=== PATIENT | male | born 1965 | race Caucasian/White ===

== ENCOUNTER 2021-05-14 13:56 | Emergency (ER) | payer OTHER | END 2021-05-14 17:17 | disposition left against medical advice (07) | LOC: ED 13:56 | DX: A41.9 Sepsis, unspecified organism (principal); R65.21 Severe sepsis with septic shock; N17.9 Acute kidney failure, unspecified; J45.909 Unspecified asthma, uncomplicated; Z20.822 Contact with and (suspected) exposure to COVID-19 | CPT/HCPCS: 36415; 51702; 74176; 80053; 81001; 83605; 83690; 85025; 87088; 99284-25; C9803; J0692; J2405; J7030; J7121; U0003 ==

== ENCOUNTER 2021-05-14 21:18 | Emergency (ER) | payer OTHER ==
[~2021-05-14] VITALS: Ht 180.3 cm; Wt 91.8 kg
--- NOTE | ~2021-05-14 | EKG ---
[facility] [address] [facility] [place], [place] [address] Draft EK completed, results pending confirmation PATIENT NAME: MEERAIVAN Electrocardiogram DATE OF : 67 PHYSICIAN: PRELIMINARY REPORT #: [id number] REPORT IS CONFIDENTIAL AND NOT TO BE RELEASED WITHOUT AUTHORIZATION
--- OUTSIDE RECORDS SUMMARY | 2021-05-14 21:26 | XMS ---
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 Neida has no Care Guidelines for this patient. Shabbir [facility] MO[facility] NOTE: Visits indicate total known visits. ED/C VISIT TRACKING (12 MO.) [facility] [place] [place] [facility] COMPLAINT: - ABD PAIN, NAUSEA 05/14/2021 13:58 [facility] [place] [place] TYPE: Emergency COMPLAINT: - VOMITING, ABD/BACK PAIN, NO URINE/BOWEL MOVEMENT INPATIENT VISIT TRACKING (12 MO.) No inpatient visits to display in this time frame [email or web address]
== END 2021-05-15 01:05 | disposition short-term general hospital (02) ==
LOC: ED 21:18
DX: N17.9 Acute kidney failure, unspecified (principal); K85.90 Acute pancreatitis without necrosis or infection, unspecified; J45.909 Unspecified asthma, uncomplicated; Z91.018 Allergy to other foods
CPT/HCPCS: 36415; 80053; 81001; 82553; 83690; 85025; 93005; 93010; 96374; 96375; 99285-25; J1170; J1885; J2405; J7030; J7121

== ENCOUNTER 2022-04-26 00:25 | Emergency (ER) | payer OTHER ==
[~2022-04-26] VITALS: Ht 180.3 cm; Wt 83.9 kg
[~2022-04-26 00:25] MED LIST: AMOX TR-K CLV1 EAC1 PO; HYDROCODON-ACE1 EA10 PO; ONDANSETRON ODT8 MG PO
[2022-04-26] MEDS ORDERED: OMEPRAZOLE20 MG PO (00:41)
[2022-04-26] MEDS ORDERED: AMOX TR-K CLV1 EAC1 PO (04:06)
[2022-04-26] MEDS ORDERED: ONDANSETRON ODT8 MG PO (04:06)
[2022-04-26] MEDS ORDERED: POTASSIUM40 MEQ/15 PO (04:06)
--- NOTE | 2022-04-27 13:03 | EKG ---
[facility] [address] [facility] [place] [address] Signed Normal sinus rhythm Normal ECG When compared with ECG of 15-MAY-2021 00:33, Nonspecific T wave abnormality no longer evident in Inferior leads Nonspecific T wave abnormality no longer evident in Lateral leads Confirmed by HUMZA HUBBARD MD ([id number]) on 04/27/2022 1:03:27 PM Electronically Signed By: HUMZA HUBBARD MD 04/27/22 1303 PATIENT NAME: IVAN ESTES Electrocardiogram DATE OF : 67 PHYSICIAN: HUMZA HUBBARD MD REPORT #: [id number] REPORT IS CONFIDENTIAL AND NOT TO BE RELEASED WITHOUT AUTHORIZATION
== END 2022-04-26 04:30 | disposition home or self-care (01) ==
LOC: ED 00:25
DX: E87.6 Hypokalemia (principal); K86.3 Pseudocyst of pancreas; D72.829 Elevated white blood cell count, unspecified; R11.2 Nausea with vomiting, unspecified; J45.909 Unspecified asthma, uncomplicated; Z20.822 Contact with and (suspected) exposure to COVID-19; Z91.018 Allergy to other foods; Z79.899 Other long term (current) drug therapy
CPT/HCPCS: 36415; 71045; 74177; 80053; 81001; 83605; 83690; 85025; 87502; 93005; 93010; 96368; 96375; 99285-25; A9270; J2405; J2543; J3480; J7030; Q9967; U0003

== ENCOUNTER 2022-05-01 02:23 | Emergency (ER) | payer OTHER ==
[~2022-05-01] VITALS: Ht 180.3 cm; Wt 77.1 kg
[~2022-05-01 02:23] MED LIST changes: +OMEPRAZOLE20 MG PO; +POTASSIUM40 MEQ/15 PO
--- OUTSIDE RECORDS SUMMARY | 2022-05-01 02:31 | XMS ---
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 - Patient with suicidal and/or homicidal ideations eloped. - Patient eloped with IV in place. Details: Patient LWBS. Elopement at [facility] 05/14/2021 13:58 Details: PATIENT LEFT AMA. CRITERIA MET - [facility] - 2 Visits in 30 Days CARE PROVIDERS [facility] Current PHONE: Unknown Neida has no Care Guidelines for this patient. E.Javon VISIT COUNT (12 MO.) 6 [facility] TOTAL 6 NOTE: Visits indicate total known visits. ED/UCC VISIT TRACKING (12 MO.) 05/01/2022 02:24 [facility] [place] TYPE: Emergency COMPLAINT: - N/V 04/26/2022 00:26 [facility] [place] TYPE: Emergency COMPLAINT: - N/V DIAGNOSES: - Nausea with vomiting, unspecified - Elevated white blood cell count, unspecified - Unspecified asthma, uncomplicated - Contact with and (suspected) exposure to COVID-19 - Pseudocyst of pancreas - Allergy to other foods - Other penitentiary (current) drug therapy - Hypokalemia 02/13/2022 10:[address] [facility] [place] TYPE: Emergency COMPLAINT: - ABDOMINAL PAIN DIAGNOSES: - Obstruction of bile duct - Epigastric pain - Sepsis, unspecified organism - Contact with and (suspected) exposure to COVID-19 - Pseudocyst of pancreas 02/12/2022 21:[address] [facility] [place] TYPE: Emergency COMPLAINT: - ABD PAIN DIAGNOSES: - Allergy to other foods - Epigastric pain - Elevated white blood cell count, unspecified - Unspecified asthma, uncomplicated 05/14/2021 21:[address] [facility] [place] TYPE: Emergency COMPLAINT: - ABD PAIN, NAUSEA DIAGNOSES: - Allergy to other foods - Unspecified asthma, uncomplicated - Acute pancreatitis without necrosis or infection, unspecified - Acute kidney failure, unspecified - Unspecified abdominal pain 05/14/2021 13:[address] [facility] [place] TYPE: Emergency COMPLAINT: - VOMITING, ABD/BACK PAIN, NO URINE/BOWEL MOVEMENT DIAGNOSES: - Nausea with vomiting, unspecified - Sepsis, unspecified organism - Acute kidney failure, unspecified - Severe sepsis with septic shock - Unspecified asthma, uncomplicated INPATIENT VISIT TRACKING (12 MO.) 02/14/2022 00:42 [facility] TYPE: General Medicine DIAGNOSES: 88132. Unspecified jaundice 88396. Biliary obstruction 16106. Other disorders of phosphorus metabolism 53114. Adult hypertrophic pyloric stenosis 38232. Unspecified jaundice 55390. Calculus of bile duct without cholangitis or cholecystitis without obstruction 49023. Other specified diseases of pancreas 97377. Acute pancreatitis without necrosis or infection, unspecified 05/15/2021 02:10 [facility] [place] TYPE: Medical Surgical COMPLAINT: - ACUTE PANCREATITIS DIAGNOSES: 0. Unspecified abdominal pain 1. Sepsis, unspecified organism 2. Acute pancreatitis with infected necrosis, unspecified 3. Unspecified bacterial pneumonia 4. Hypo-osmolality and hyponatremia 5. Acute kidney failure, unspecified 6. Hypokalemia 7. Hypomagnesemia 8. Dehydration 9. Hypoxemia 10. Allergy to other foods 11. Family history of alcohol abuse and dependence 12. Family history of diabetes mellitus [email or web address]
[2022-05-01] MEDS ORDERED: POTASSIUM40 MEQ/15 PO (04:11)
[2022-05-01] MEDS ORDERED: PROMETHEGAN25 MG PR (04:11)
== END 2022-05-01 04:25 | disposition home or self-care (01) ==
LOC: ED 02:23
DX: R11.2 Nausea with vomiting, unspecified (principal); Z91.018 Allergy to other foods
CPT/HCPCS: 36415; 80053; 82565; 83690; 85025; 96361; 96374; 99284-25; A9270; J1790; J7121

== ENCOUNTER 2022-05-05 22:35 | Inpatient (IN) | payer OTHER ==
[~2022-05-05] VITALS: Ht 180.3 cm; Wt 68.4 kg
[~2022-05-05 22:35] MED LIST changes: +PROMETHEGAN25 MG PR
--- OUTSIDE RECORDS SUMMARY | 2022-05-05 22:42 | XMS ---
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 - Patient with suicidal and/or homicidal ideations eloped. - Patient eloped with IV in place. Details: Patient LWBS. Elopement at [facility] 05/14/2021 13:58 Details: PATIENT LEFT AMA. CRITERIA MET - [facility] - 2 Visits in 30 Days CARE PROVIDERS [facility] Current PHONE: Unknown Neida has no Care Guidelines for this patient. E.Javon VISIT COUNT (12 MO.) [address] [place] [address] TOTAL 7 NOTE: Visits indicate total known visits. 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 - Hypokalemia - Nausea with vomiting, unspecified - Elevated white blood cell count, unspecified - Unspecified asthma, uncomplicated 02/13/2022 10:16 [facility] [place] TYPE: Emergency COMPLAINT: - ABDOMINAL PAIN DIAGNOSES: - Sepsis, unspecified organism - Contact with and (suspected) exposure to COVID-19 - Pseudocyst of pancreas - Obstruction of bile duct - Epigastric pain 02/12/2022 21:24 [facility] [place] TYPE: Emergency COMPLAINT: - ABD PAIN DIAGNOSES: - Epigastric pain - Elevated white blood cell count, unspecified - Unspecified asthma, uncomplicated - Allergy to other foods 05/14/2021 21:19 [facility] [place] TYPE: Emergency COMPLAINT: - ABD PAIN, NAUSEA DIAGNOSES: - Acute pancreatitis without necrosis or infection, unspecified - Acute kidney failure, unspecified - Unspecified abdominal pain - Allergy to other foods - Unspecified asthma, uncomplicated 05/14/2021 13:[address] [facility] [place] TYPE: Emergency COMPLAINT: - VOMITING, ABD/BACK PAIN, NO URINE/BOWEL MOVEMENT DIAGNOSES: - Acute kidney failure, unspecified - Severe sepsis with septic shock - Unspecified asthma, uncomplicated - Nausea with vomiting, unspecified - Sepsis, unspecified organism INPATIENT VISIT TRACKING (12 MO.) 02/14/2022 00:42 [facility] TYPE: General Medicine DIAGNOSES: 82457. Unspecified jaundice 75940. Biliary obstruction 85976. Calculus of bile duct without cholangitis or cholecystitis without obstruction 98030. Other specified diseases of pancreas 19272. Acute pancreatitis without necrosis or infection, unspecified 22548. Other disorders of phosphorus metabolism 40322. Adult hypertrophic pyloric stenosis 66269. Unspecified jaundice 05/15/2021 02:10 [facility] [place] TYPE: Medical Surgical COMPLAINT: - ACUTE PANCREATITIS DIAGNOSES: 0. Unspecified abdominal pain 1. Sepsis, unspecified organism 2. Acute pancreatitis with infected necrosis, unspecified 3. Unspecified bacterial pneumonia 4. Hypo-osmolality and hyponatremia 5. Acute kidney failure, unspecified 6. Hypokalemia 7. Hypomagnesemia 8. Dehydration 9. Hypoxemia 10. Allergy to other foods 11. Family history of alcohol abuse and dependence 12. Family history of diabetes mellitus [email or web address]
[2022-05-06] MEDS ORDERED: POTASSIUM CHLO10 MEQ PO (11:48)
[2022-05-06] MEDS ORDERED: ONDANSETRON ODT8 MG PO (11:52)
--- NOTE | 2022-05-07 17:41 | EKG ---
[facility] [address] [facility] [place] [address] Signed Normal sinus rhythm Prolonged QT Abnormal ECG When compared with ECG of 26-APR-2022 01:00, T wave inversion now evident in Anterior leads QT has lengthened Confirmed by HUMZA HUBBARD MD ([id number]) on 05/07/2022 5:41:12 PM Electronically Signed By: HUMZA HUBBARD MD 05/07/22 1741 PATIENT NAME: IVAN ESTES DORA Electrocardiogram DATE OF : 67 PHYSICIAN: HUMZA HUBBARD MD REPORT #: [id number] REPORT IS CONFIDENTIAL AND NOT TO BE RELEASED WITHOUT AUTHORIZATION
== END 2022-05-07 15:00 | disposition home or self-care (01) | DRG 683 ==
LOC: ED 22:35 → CCU 22:36 → MS 05-06 11:27 → CCU 05-06 11:27 → MS 05-06 19:39
PROVIDERS: ADMIT Internal Medicine; ATTEND Internal Medicine
DX: N17.9 Acute kidney failure, unspecified (principal); K31.5 Obstruction of duodenum; E87.6 Hypokalemia; Z20.822 Contact with and (suspected) exposure to COVID-19; N18.30 Chronic kidney disease, stage 3 unspecified; M54.50 Low back pain, unspecified; G89.29 Other chronic pain; J45.909 Unspecified asthma, uncomplicated; E83.42 Hypomagnesemia; Z91.018 Allergy to other foods; Z79.899 Other long term (current) drug therapy
CPT/HCPCS: 36415; 71045; 74176; 80048; 80053; 81001; 83690; 83735; 85025; 93005; 93010; A9270; C9113; J2405; J3475; J3480; J7030; J7120; U0003

== ENCOUNTER 2022-05-09 02:23 | Emergency (ER) | payer OTHER ==
[~2022-05-09] VITALS: Ht 180.3 cm; Wt 68.0 kg
[~2022-05-09 02:23] MED LIST changes: +POTASSIUM CHLO10 MEQ PO
--- OUTSIDE RECORDS SUMMARY | 2022-05-09 02:30 | XMS ---
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 - Patient with suicidal and/or homicidal ideations eloped. - Patient eloped with IV in place. Details: Patient LWBS. Elopement at [facility] 05/14/2021 13:58 Details: PATIENT LEFT AMA. CRITERIA MET - [facility] - 2 Visits in 30 Days - 6 ED Visits in 6 Months CARE PROVIDERS [facility] Current PHONE: Unknown Neida has no Care Guidelines for this patient. EBryan VISIT COUNT (12 MO.) [address] [place] [address] TOTAL 8 NOTE: Visits indicate total known visits. ED/UCC VISIT TRACKING (12 MO.) 05/09/2022 02:23 [facility] [place] TYPE: Emergency COMPLAINT: - N/V 05/05/2022 22:35 [facility] [place] TYPE: Emergency [...] Other penitentiary (current) drug therapy - Hypokalemia - Nausea with vomiting, unspecified - Elevated white blood cell count, unspecified - Unspecified asthma, uncomplicated 02/13/2022 10:16 [facility] [place] TYPE: Emergency COMPLAINT: - ABDOMINAL PAIN DIAGNOSES: - Sepsis, unspecified organism - Contact with and (suspected) exposure to COVID-19 - Pseudocyst of pancreas - Obstruction of bile duct - Epigastric pain 02/12/2022 21:24 [facility] [place] TYPE: Emergency COMPLAINT: - ABD PAIN DIAGNOSES: - Epigastric pain - Elevated white blood cell count, unspecified - Unspecified asthma, uncomplicated - Allergy to other foods 05/14/2021 21:19 [facility] [place] TYPE: Emergency COMPLAINT: - ABD PAIN, NAUSEA DIAGNOSES: - Acute pancreatitis without necrosis or infection, unspecified - Acute kidney failure, unspecified - Unspecified abdominal pain - Allergy to other foods - Unspecified asthma, uncomplicated 05/14/2021 13:58 [facility] [place] TYPE: Emergency COMPLAINT: - VOMITING, ABD/BACK PAIN, NO URINE/BOWEL MOVEMENT DIAGNOSES: - Acute kidney failure, unspecified - Severe sepsis with septic shock - Unspecified asthma, uncomplicated - Nausea with vomiting, unspecified - Sepsis, unspecified organism INPATIENT VISIT TRACKING (12 MO.) 05/06/2022 11:27 [facility] [place] TYPE: Medical Surgical COMPLAINT: - ACUTE RENAL FAILURE,HYPOKALEMIA DIAGNOSES: - Acute kidney failure, unspecified - Other chronic pain - Other penitentiary (current) drug therapy - Obstruction of duodenum - Unspecified asthma, uncomplicated - Hypokalemia - Chronic kidney disease, stage 3 unspecified - Other penitentiary (current) drug therapy - Other chronic pain - Obstruction of duodenum - Low back pain, unspecified - Allergy to other foods - Low back pain, unspecified - Chronic kidney disease, stage 3 unspecified - Contact with and (suspected) exposure to COVID-19 - Allergy to other foods - Hypomagnesemia - Hypomagnesemia - Hypokalemia - Unspecified asthma, uncomplicated - Contact with and (suspected) exposure to COVID-19 02/14/2022 00:42 [facility] TYPE: General Medicine DIAGNOSES: 02377. Unspecified jaundice 17297. Biliary obstruction 70890. Calculus of bile duct without cholangitis or cholecystitis without obstruction 84960. Other specified diseases of pancreas 97913. Acute pancreatitis without necrosis or infection, unspecified 63618. Other disorders of phosphorus metabolism 57148. Adult hypertrophic pyloric stenosis 65500. Unspecified jaundice [facility]15[facility]2021 02:[facility] COMPLAINT: - ACUTE PANCREATITIS DIAGNOSES: 0. Unspecified abdominal pain 1. Sepsis, unspecified organism 2. Acute pancreatitis with infected necrosis, unspecified 3. Unspecified bacterial pneumonia 4. Hypo-osmolality and hyponatremia 5. Acute kidney failure, unspecified 6. Hypokalemia 7. Hypomagnesemia 8. Dehydration 9. Hypoxemia 10. Allergy to other foods 11. Family history of alcohol abuse and dependence 12. Family history of diabetes mellitus [email or web address]
== END 2022-05-09 11:06 | disposition home or self-care (01) ==
LOC: ED 02:23
DX: R11.10 Vomiting, unspecified (principal); J45.909 Unspecified asthma, uncomplicated; Z91.018 Allergy to other foods; Z79.899 Other long term (current) drug therapy
CPT/HCPCS: 36415; 80053; 83690; 83735; 85025; 96361; 96365; 96368; 96375; 99284-25; J2550; J2765; J3475; J3480; J7030

== ENCOUNTER 2022-05-17 09:44 | Inpatient (IN) | payer OTHER ==
[~2022-05-17] VITALS: Ht 180.3 cm; Wt 70.1 kg
--- OUTSIDE RECORDS SUMMARY | 2022-05-17 09:52 | XMS ---
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 - Patient with suicidal and/or homicidal ideations eloped. - Patient eloped with IV in place. Details: Patient LWBS. Elopement at [facility] 05/14/2021 13:58 Details: PATIENT LEFT AMA. CRITERIA MET - 6 ED Visits in 6 Months - [facility] - 2 Visits in 30 Days CARE PROVIDERS [facility] Current PHONE: Unknown Neida has no Care Guidelines for this patient. EBryan VISIT COUNT (12 MO.) [address] [place] [address] TOTAL 7 NOTE: Visits indicate total known visits. 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 - Allergy to other foods - Unspecified abdominal pain - Vomiting, unspecified - Unspecified asthma, uncomplicated 05/05/2022 22:35 [facility] [place] TYPE: Emergency COMPLAINT: - VOMITING 05/01/2022 02:24 [facility] [place] TYPE: Emergency COMPLAINT: - N/V DIAGNOSES: - Allergy to other foods - Nausea with vomiting, unspecified 04/26/2022 00:26 [facility] [place] TYPE: Emergency COMPLAINT: - N/V DIAGNOSES: - Contact with and (suspected) exposure to COVID-19 - Pseudocyst of pancreas - Allergy to other foods - Other senior care (current) drug therapy - Hypokalemia - Nausea [...] asthma, uncomplicated - Allergy to other foods INPATIENT VISIT TRACKING (12 MO.) 05/06/2022 11:27 [facility] [place] TYPE: Medical Surgical COMPLAINT: - ACUTE RENAL FAILURE,HYPOKALEMIA DIAGNOSES: - Contact with and (suspected) exposure to COVID-19 - Acute kidney failure, unspecified - Other chronic pain - Other senior care (current) drug therapy - Unspecified asthma, uncomplicated - Obstruction of duodenum - Hypokalemia - Chronic kidney disease, stage 3 unspecified - Other senior care (current) drug therapy - Other chronic pain - Obstruction of duodenum - Low back pain, unspecified - Allergy to other foods - Chronic kidney disease, stage 3 unspecified - Low back pain, unspecified - Contact with and (suspected) exposure to COVID-19 - Allergy to other foods - Hypomagnesemia - Hypomagnesemia - Hypokalemia - Unspecified asthma, uncomplicated 02/14/2022 00:42 [facility] TYPE: General Medicine DIAGNOSES: 16009. Unspecified jaundice 48245. Biliary obstruction 79304. Calculus of bile duct without cholangitis or cholecystitis without obstruction 43046. Other specified diseases of pancreas 29197. Acute pancreatitis without necrosis or infection, unspecified 85129. Other disorders of phosphorus metabolism 41776. Adult hypertrophic pyloric stenosis 63572. Unspecified jaundice [email or web address]
[2022-05-17] MEDS ORDERED: CIPROFLOXACIN500 MG PO (09:58)
--- NOTE | 2022-05-17 12:32 | NUR ---
MED REC COMPLETE
[2022-05-17] MEDS ORDERED: POTASSIUM CHLO10 MEQ PO (12:56)
--- NOTE | 2022-05-17 13:52 | NUR ---
PATIENT ADMITTED TO MED SURG. PATIENT DOES HAVE A RIGHT T-TUBE WITH RIGHT LOWER BACK INSERTION SITE, TUBE HAS PURULENT DRAINAGE. PATIENT SELF CARES FOR DRAIN. IV KCL IS INFUSING CONCURRENLY WITH IVF TO RIGHT ARM. PATIENT RATES PAIN LOW 1/10 TO LOWER BACK. PATIENT IS HAVING CLEAR LIQUIDS, CHICKEN BROTH AND ICE WATER AT THIS TIME AND IS TOLERATING WELL.
--- NOTE | 2022-05-17 14:24 | NUR ---
medications reconciled with patient.
--- NOTE | 2022-05-17 14:55 | NUR ---
INTO SEE PATIENT. INFORMATION REVIEWED FROM PATIENT LAST VISIT. PATIENT IS STILL LIVING WITH HIS SO AND WORKING FROM HOME. NO DME REQUIRED AT THIS TIME. PATIENT STATES HE HAS BEEN SEEN AT [facility] OVER THE PAST YEAR FOR ONGOING ISSUES RELATED TO G[place]STONE PANCREATITIS AND THE FORMATION OF A PSEUDOCYST. HE STATES THAT HE WAS HOPING THE HAVE THE DRAIN REMOVED FROM THE CYST, BUT HAD FOUND THAT IT HAD NOT DECREASED MUCH IN SIZE. PATIENT STATES HE DOES NOT HAVE A SCHEDULED DATE FOR A CHOLECYSTECTOMY AT THIS TIME AND HE "JUST WANTS TO GET BETTER." NO FURTHER NEEDS AT THIS TIME. WILL CONTINUE TO VISIT PATIENT.
--- NOTE | 2022-05-17 15:04 | NUR ---
PATIENT ADVANCED TO FULL LIQUID DIET.
--- NOTE | 2022-05-17 15:50 | NUR ---
PATIENT GIVEN 4MG IV ZOFRAN FOR NAUSEA. PATIENT UP TO BATHROOM TO VOID. PATIENT TOLERATED ACTIVITY WITH SBA, WAS STEADY ON HIS FEET.
--- NOTE | 2022-05-17 17:03 | NUR ---
PATIENT HAS REDUCED NAUSEA AFTER ZOFRAN, IS SITTING UP IN BED TO HAVE FULL LIQUID DINNER.
--- NOTE | 2022-05-17 19:37 | NUR ---
REPORT RECEIVED FROM DAY SHIFT RN. PT LYING IN BED ALERT AND ORIENTED. NEW BAG IVF HUNG. FRESH WATER PROVIDED. URINAL EMPTIED. PT REPORTS NAUSEA THAT IMPROVED AFTER "BELCHING." DOES NOT WANT PRN FOR N/V AT THIS TIME. WHITE BOARD UPDATED. CALL LIGHT IN REACH.
--- NOTE | 2022-05-17 21:53 | NUR ---
EVENING ASSESSMENT COMPLETE. SCHEDULED MEDS ADMIN PER EMAR. PT DENIES PAIN OR NAUSEA AT THIS TIME. PT HAS DIFFICULTY SWALLOWING MEDS WITHOUT CRUSHING. PT UNABLE TO SWALLOW PO MAG ADMIN BY DAY SHIFT. DR. HINSON NOTIFIED. NEW ORDERS RECEIVED. CONCEPCION PROVIDED. SCD'S PLACED. PT DENIES QUESTIONS OR CONCERNS. CALL LIGHT IN REACH.
--- NOTE | 2022-05-17 22:03 | NUR ---
CALL LIGHT ANSWERED. PT REPORTS "SLIGHT STINGING" WITH MAG INFUSION. IV IN RIGHT FOREARM FLUSHED WITH BRISK BLOOD RETURN NOTED. MAG INFUSING CONCURRENTLY WITH IVF. WARM BLANKET PLACED OVER SITE. PT REPORTS PAIN IMPROVED, DOES NOT WANT THIS RN TO SWITCH IV SITES. CHICKEN BROTH PROVIDED. NO FURTHER NEEDS.
--- NOTE | 2022-05-17 22:44 | NUR ---
PT REPORTS INTERMITTENT NAUSEA. PRN FOR N/V ADMIN PER EMAR. APPLE JUICE AND FRESH WATER PROVIDED. NO FURTHER NEEDS.
--- NOTE | 2022-05-18 00:52 | NUR ---
IV PUMP ALARMING. NEW BAG IVF INFUSING WNL. VS AND I&O COMPLETE. PT DENIES PAIN OR NAUSEA. SCD'S OFF FOR SLEEP PER PT REQUEST. APPLE JUICE PROVIDED. NO FURTHER NEEDS.
--- NOTE | 2022-05-18 03:21 | NUR ---
PT AWAKE IN BED. ASSESSMENT COMPLETE. DENIES NAUSEA. URINAL EMPTIED. APPLE JUICE PROVIDED. NO FURTHER NEEDS.
--- NOTE | 2022-05-18 05:41 | NUR ---
IV PUMP ALARMING. NEW BAG IVF INFUSING WNL. PT DENIES PAIN OR NAUSEA AT THIS TIME. FRESH WATER AND APPLE JUICE PROVIDED. NO FURTHER NEEDS. CALL LIGHT IN REACH.
--- NOTE | 2022-05-18 07:19 | NUR ---
PT UP IN BED. PT REQ APPLE JUICE. PT PROVIDED APPLE JUICE. PT CONCERNED OF CALCIUM AMOUNT THAT WILL BE ON FOOD TRAY THIS MORNING. I LET PT KNOW THAT HIS RN SHOULD BE AWARE BUT I WILL DOUBLE CHECK AND MAKE SURE RN IS NOTIFIED. NO FURTHER NEEDS. CALL LIGHT WITHIN REACH.
--- NOTE | 2022-05-18 07:32 | NUR ---
REPORT RECEIVED FROM ISIDORO ROE. PT AWAKE AND STATES HE FEELS BETTER, MORE HYDRATED "PEEING A TON". WILL MONITOR FOR A BIT LONGER THEN TURN DOWN FLUIDS IF HE TOLERATES BREAKFAST.
--- NOTE | 2022-05-18 09:22 | NUR ---
PT RESTING IN BED. VITALS AND IS AND OS COMPLETE. PT DECLINED BATHROOM NEEDS. NO FURTHER NEEDS. CALL LIGHT WITHIN REACH
--- NOTE | 2022-05-18 10:54 | NUR ---
PATIENT ADVANCED TO REGULAR DIET, MENU PROVIDED AND PATIENT IS ODERING LUNCH.
--- NOTE | 2022-05-18 11:09 | NUR ---
pt call light answered, pt req to have urinal emptied. pt provided wipe to clean hands. no needs at this time. call light within reach
--- NOTE | 2022-05-18 11:45 | NUR ---
PT SITTING UP RIGHT IN BED. PLACED GAUZE AROUND DRAIN PER PT REQUEST. HUNG NEW BAG OF IVF PER ORDER. PT TOLERATED WELL. DENIES PAIN ATT.
--- NOTE | 2022-05-18 12:01 | NUR ---
PATIENT GIVEN 4MG IV ZOFRAN FOR MILD NAUSEA AFTER LUNCH.
--- NOTE | 2022-05-18 13:12 | NUR ---
PATIENT SITTING ON SIDE OF BED NO CHANGE IN DISCHARGE PLAN. THE PLAN IS TO DC HOME AND IN THE FUTURE FOLLOW UP WITH [facility].
--- NOTE | 2022-05-18 15:27 | NUR ---
ADMINISTERED CIPRO PER ORDER. PT TOLERATED WELL. WOKE PT FOR PILLS. PT STATES THAT HE IS GETTING MORE OF THE "STUFF" OUT OF THE DRAIN THAN HE HAS IN THE LAST WEEK SINCE PLACEMENT. STATES IT IS PROBABLY BECAUSE HE IS MORE HYDRATED.
--- NOTE | 2022-05-18 16:42 | NUR ---
PT VOMITED 2400ML GREEN EMESIS. PT NOW FEELS SLIGHTLY BETTER. IV WITH POTASSIUM DONE, RESTARTED NS. PT BACK TO BED TO REST. CALL LIGHT IN REACH.
--- NOTE | 2022-05-18 19:45 | NUR ---
REPORT RECEIVED FROM DAY SHIFT RN. PT LYING IN BED RESTING ON LEFT SIDE. EYES CLOSED. RESPIRATIONS EVEN. CALL LIGHT IN REACH.
--- NOTE | 2022-05-18 20:44 | NUR ---
EVENING ASSESSMENT COMPLETE. IVF INFUSING WNL. PT DENIES PAIN OR NAUSEA AT THIS TIME. BOWEL TONES ACTIVE. RIGHT LOWER BACK DRAIN INTACT WITH SMALL AMOUNT DARK PURULENT DRAINAGE. DRESSING CDI. APPLE JUICE AND FRESH WATER PROVIDED. PT DENIES QUESTIONS OR CONCERNS. CALL LIGHT IN REACH.
--- NOTE | 2022-05-18 21:41 | EKG ---
[facility] [address] [facility] [place] [address] Signed Sinus tachycardia Left posterior fascicular block Abnormal ECG When compared with ECG of 05-MAY-2022 23:55, Left posterior fascicular block is now present T wave inversion no longer evident in Anterior leads Nonspecific T wave abnormality now evident in Lateral leads Confirmed by Charley Hinson MD () on 05/18/2022 9:41:13 PM Electronically Signed By: CHARLEY HINSON MD 05/18/222140 PATIENT NAME: IVAN ESTES Electrocardiogram DATE OF : 67 PHYSICIAN: CHARLEY HINSON MD REPORT #: [id number] REPORT IS CONFIDENTIAL AND NOT TO BE RELEASED WITHOUT AUTHORIZATION
--- NOTE | 2022-05-18 23:39 | NUR ---
CALL LIGHT ANSWERED. APPLE JUICE AND GRANOLA BAR PROVIDED PER PT REQUEST. URINAL EMPTIED. NO FURTHER NEEDS.
--- NOTE | 2022-05-19 01:54 | NUR ---
PT RESTING IN BED WITH EYES CLOSED LYING ON LEFT SIDE. RESPIRATIONS EVEN. CALL LIGHT IN REACH.
--- NOTE | 2022-05-19 02:49 | NUR ---
CALL LIGHT ANSWERED. JUICE, WATER, AND GRANOLA BAR PROVIDED PER REQUEST. PT DENIES PAIN OR NAUSEA. NEW BAG IVF INFUSING PER ORDER. WARM BLANKET PROVIDED. NO FURTHER NEEDS.
--- NOTE | 2022-05-19 02:50 | NUR ---
call light answered, pt requesting apple juice-granola bar-fresh ice water. request provided, no additional needs. call light in reach. primary rn in room to hang new bag iv fluids.
--- NOTE | 2022-05-19 04:03 | NUR ---
PT RESTING IN BED ON RIGHT SIDE WITH EYES CLOSED. RESPIRATIONS EVEN. CALL LIGHT IN REACH.
--- NOTE | 2022-05-19 05:43 | NUR ---
PT RESTING IN BED. AWAKENS EASILY. VS AND I&O COMPLETE. PT DENIES PAIN OR NAUSEA. APPLE JUICE PROVIDED. NO FURTHER NEEDS. CALL LIGHT IN REACH.
--- NOTE | 2022-05-19 07:04 | NUR ---
Report from Facundo Montiel RN. Patient sitting up in bed, watching TV. Denies needs at this time. Call light in reach.
--- NOTE | 2022-05-19 09:25 | NUR ---
ASSESSMENT COMPLETED. IV TO LEFT HAND DC'D DUE TO INFLAMMATION. DENIES PAIN AT THIS TIME. CALL LIGHT IN REACH. PATIENT STATES HE IS FEELING "FOGGY" THIS AM. STATES HE ALSO FEELS LIKE HE NEEDS TO HAVE A BM, BUT WILL WAIT A BIT LONGER BEFORE HE ATTEMPTS TO HAVE BM.
--- NOTE | 2022-05-19 11:53 | NUR ---
Emesis of 450ml. Informed too early for Zofran at this time. Informed phenergan is available. States he would rather have medication after lunch since it makes him sleep. Dr. Oliver notified of emesis, plan to keep patient through tonight and continue IV fluids.
--- NOTE | 2022-05-19 12:27 | NUR ---
Emesis of 400mL at this time. States he would like to eat at this time. Denies want of PRN medication at this time.
--- NOTE | 2022-05-19 14:01 | NUR ---
Emesis of 800 mL after eating lunch. Zofran administered. Dr. Oliver notified, in to see patient at this time. Continue to plan to keep overnight tonight and plan for DC tomorrow, if patient able to keep food down. Continues on IV fluids. Patient tearful at this time. Voices concern about dying due to inability to eat without vomiting. Also verbalizes wish to get well and go home soon. Feels he does need more time to ensure he does not get dehydrated again.
--- NOTE | 2022-05-19 15:40 | NUR ---
PATIENT WITH 500ML OF EMESIS. PATIENT GIVEN 12.5MG OF IV PHENERGAN.
--- NOTE | 2022-05-19 17:07 | NUR ---
REGULAR DIET THIS AM AND FOR LUNCH. INCREASED EMESIS, 1800 ML OUT TOTAL TODAY. DRAIN REMAINS IN RIGHT LOWER BACK WITH PURULENT DRAINAGE OUT. IV POTASSIUM IN 1 LITER OF FLUID INFUSED. PATIENT STATES HE IS JUST GOING TO HAVE LIQUID DIET FOR SUPPER TO ATTEMPT TO NOT VOMIT FURTHER. IV FLUIDS INCREASED TO 200ML/HOUR, NS.
--- NOTE | 2022-05-19 17:28 | NUR ---
ATE 50% OF MEAL WITH 1000ML EMESIS IMMEDIATELY AFTER. STATES HE IS JUST GOING TO LAY DOWN AND TRY TO REST AT THIS TIME.
--- NOTE | 2022-05-19 17:38 | NUR ---
PATIENT IS RESTING IN BED, DENIES NEEDS AT THIS TIME.
--- NOTE | 2022-05-19 19:20 | NUR ---
RECEIVED REPORT FROM OFFGOING SHIFT, HOURLY ROUNDING INITIATED
--- NOTE | 2022-05-19 21:59 | NUR ---
IN PT ROOM FOR ROUNDING. PT RESTING ON SIDE, EYES CLOSED, BREATHING EVEN AND UNLABORED, NO INDICATION OF PAIN OR DISCOMFORT. PT CALL LIGHT IN REACH.
--- NOTE | 2022-05-19 22:59 | NUR ---
in pt room for rounding. pt resting on side, eyes closed, breathing even and unlabored with no indication of pain or discomfort. call light in reach.
--- NOTE | 2022-05-20 00:10 | NUR ---
pt HEARD FROM RN STATION DRY HEAVING, IN ROOM TO ASSIST. pt HAD 550MLS GREEN LIQUID EMESIS-RECENTLY MEEDICATED BY PRIMARY RN LISA WITH PRN [place]A MEDICATION. NEW EMESIS BAG PROVIDED ALONG WITH WARM RAG TO WASH FACE. NO DISTRESS NOTED, pt DENIES ADDITIONAL NEEDS OR CONCERNS. CALL LIGHT IN REACH AND PRIMARY RN LISA MADE AWARE.
--- NOTE | 2022-05-20 00:13 | NUR ---
IN PT ROOM FOR ROUNDING. PT FOUND TO BE SITTING ON EDGE OF BED, EMESIS BAG IN HAND ACTIVELY VOMITING. TOTAL VOLUME 600 mL. PT GIVEN NAUSEA MEDICINE PER REQUEST. WILL CONTINUE TO MONITOR, NO FURTHER COMPLAINT OF PAIN OR DISCOMFORT.
--- NOTE | 2022-05-20 00:57 | NUR ---
IN PT ROM FOR ROUNDING. PT RESTING ON SIDE, BREATHING EVEN AND UNLABORED, EVIDENCE OF NAUSEA AND VOMIT NOT PRESENT. PT CALL LIGHT IN REACH, NO COMPLAINT OF PAIN OR DISCOMFORT
--- NOTE | 2022-05-20 01:27 | NUR ---
PATIENT HAD 1100ML OF EMESIS. PATIENT GIVEN PRN NAUSEA MEDICATION. PATIENTS URINAL EMPTIED. PATIENT PROVIDED COOL RAG TO WASH FACE. PATIENT IS NOW RESTING IN BED. IV INFUSING PER ORDER. PATIENT DENIES ANY FURTHER NEEDS. CALL LIGHT IN REACH.
--- NOTE | 2022-05-20 03:26 | NUR ---
IN PT ROOM FOR ROUDNIGN. PT RESTING ON SIDE, BREATHING EVEN AND UNLABORE,D NO INDICATION OF DISCOMFORT, NAUSEA. PT CALL LIGHT IN REACH
--- NOTE | 2022-05-20 04:07 | NUR ---
IN PT ROOM TO EMPTY URINAL. PT AWAKE AND TALKATIVE, ABLE TO MAKE NEEDS KNOWN. PT HAS NO COMPLAINT OF PAIN OR NAUSEA AT THIS TIME. CALL LIGHT IN REACH.
--- NOTE | 2022-05-20 05:24 | NUR ---
pt resting in bed. vitals and is and os complete. pt declined am care. pt provided grape juice and ice water.when pt asked if he would like to get up to chair, pt stated "i dont know what i want, i just want to go home". pt informed he can just let us know if he would like to get up no needs at this time. call light within reach
--- NOTE | 2022-05-20 07:49 | NUR ---
ANSWERED CALL LIGHT WITH METAL DRAWER. ASSISTED PATIENT TO CHAIR AND SET PT UP FOR BREAKFAST. CHANGED LINENS. CALL LIGHT WITHIN REACH. NO FURTHER NEEDS AT THIS TIME.
--- NOTE | 2022-05-20 07:52 | NUR ---
RECIEVED SHIFT REPORT. PT AWAKE IN BED, DENIES ANY NEEDS AT THIS TIME. CALL LIGHT WITHIN REACH.
--- NOTE | 2022-05-20 09:22 | NUR ---
MORNING ASSESSMENT COMPLETE. PT DENIES PAIN AT THIS TIME. TOLERATED BREAKFAST, DENIES NAUSEA. ABD SOUNDS HYPOACTIVE IN ALL QUADRANTS. CALL LIGHT WITHIN REACH. DENIES FURTHER NEEDS.
--- NOTE | 2022-05-20 10:07 | NUR ---
PATIENT RESTING IN BED. ADMINISTERED AM MEDICATION AND IV POTASSIUM MEDICATION ON SECONDARY LINE. PATIENT REPORTS NO PAIN OR NAUSEA AT THIS TIME AND TOLERATED BREAKFAST WELL. VITALS, I/O, & ASSESSMENT COMPLETE. CALL LIGHT WITHIN REACH. NO FURTHER NEEDS AT THIS TIME.
--- NOTE | 2022-05-20 11:19 | NUR ---
PT SITTING ON SIDE OF BED, MINIMAL EMESIS EPISODES, ZOFRAN OFFERED, PT REFUSED. WILL CONTIUNE TO MONITOR. CALL LIGHT WITHIN REACH
--- NOTE | 2022-05-20 11:23 | NUR ---
PER AM MEETING AND MD DIET ADJUSTED AND FLUID RESTRICTION STARTED. WILL CONTINUE TO MONITOR PATIENT, NO CHANGES IN DISCHARGE PLAN AT THIS TIME.
--- NOTE | 2022-05-20 12:59 | NUR ---
pt had an episode of emesis, 350 ml. pt agreed to prn nausea medication. adminstered (per emar). denies further needs. call light within reach
--- NOTE | 2022-05-20 14:59 | NUR ---
PT CONTIUNES TO HAVE EPISODES OF EMESIS. PT DENIES NAUSEA A THIS TIME. REFUSED PRN NAUSEA MEDICATION. DENIES FURTHER NEEDS AT THIS TIME.
--- NOTE | 2022-05-20 17:47 | NUR ---
PATIENT AT EDGE OF BED EATING DINNER. PT. ON FULL LIQUID DIET. REPORTS NO NAUSEA OR PAIN AT THIS TIME. VITALS COMPLETE. CALL LIGHT WITHIN REACH, NO FURTHER NEEDS AT THIS TIME.
--- NOTE | 2022-05-20 19:28 | NUR ---
RECEIVED BEDSIDE REPORT FROM OFFGOING SHIFT, HOURLY ROUNDING INITIATED.
--- NOTE | 2022-05-20 20:59 | NUR ---
IN PT ROOM FOR ASSESSMENT. PT RESTING ON SIDE, EXPRESS DESIRE TO NOT MOVE IF UNNECESSARY. PT HAS NO COMPLAINT OF PAIN OR DISCOMFORT AT THIS TIME, CALL LIGHT IN REACH
--- NOTE | 2022-05-20 22:05 | NUR ---
IN PT ROOM FOR ROUNDIGN. PT RESTING ON SIDE, EYES CLOSED, BREATHING EVEN AND UNLABORED, NO INDICATION OF PAIN OR DSICOMFORT, CALL LIGHT IN REACH.
--- NOTE | 2022-05-20 23:24 | NUR ---
IN PT ROOM FOR ROUNDING. PT RESTING ON SIDE, EYES CLOSED, BREATHING EVEN AND UNLABORED WITH NO INDICATION OF PAIN OR DISCOMFORT. PT CALL LIGHT IN REACH.
--- NOTE | 2022-05-21 00:46 | NUR ---
IN PT ROOM FOR ROUNDING. PT NAUSEA SEEMS TO HAVE RESOLVED AT THIS TIME, NO FURTHER COMPLAINT OF DISCOMFORT. PT CALL LIGHT IN REACH
--- NOTE | 2022-05-21 03:00 | NUR ---
IN PT ROOM FOR ROUNDING. PT RESTING ON SIDE, EYES CLOSED, NO COMPLAINT OF NAUSEA OR PAIN, BREATHING EVEN AND UNLABORED, CALL LIGHT IN REACH.
--- NOTE | 2022-05-21 07:05 | NUR ---
bedside report from michelle rn, pt awake in bed with call light in reach, iv fusing at 125 - pt denies needs at this time- white board updated.
--- NOTE | 2022-05-21 08:13 | NUR ---
PATIENT SITTING UP IN BED WITH TV ON. PT REPORTS NO NAUSEA OR PAIN AT THIS TIME AND REFUSED SHOWER FOR THE DAY, STATES "REALLY WANTS TO GET HOME". ASSESSMENT COMPLETE. CALL LIGHT WITHIN REACH, NO FURHTER NEEDS AT THIS TIME.
--- NOTE | 2022-05-21 09:30 | NUR ---
in room with pt for assessment, he reports no nausea or vomiting at this time, he states that he often get sick 2-3 hrs after he has intake? hi right side posterior flank tube is secure and draining a small amt of dark milky fluid to the gravity drain. this rn visitied with about pt status. 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
--- NOTE | 2022-05-21 09:45 | NUR ---
PT. IS FINISHED WITH BREAKFAST AND RESTING IN BED WITH THE TV ON. VITALS COMPLETE. PT REPORTS NO NAUSEA OR PAIN AT THIS TIME. APPEARS TO BE OBIDING BY FLUID RESTRICTION ORDER. PT STATES "FEELING EMOTIONALLY DONE AND DRAINED FROM BEING IN THE HOSPITAL AND WANTS TO GO HOME". OFFERED EMOTIONAL ENCOURAGEMENT AND PATIENT RESPONDED WELL. CALL LIGHT WITHIN REACH, NO FURTHER NEEDS AT THIS TIME.
--- NOTE | 2022-05-21 12:10 | NUR ---
pt requested nausea medication, adminstered (per emar). pt states he feels nauseous at this time, states his "urine is getting darker and hes not getting enough fluids". pt eating lunch at this time. call light within reach.
--- NOTE | 2022-05-21 12:18 | NUR ---
PATIENT'S DISCHAGE PLAN REMAINS UNCHANGED. PATIENT WILL BE DC'd WHEN MEDICALLY STABLE. PATIENT CONTINUES TO HAVE NAUSEA AND VOMITING EPISODES. PATIENT WILL RETURN TO [facility] IN THE NEAR FUTURE.
--- NOTE | 2022-05-21 16:05 | NUR ---
PT SITTING IN CHAIR, AWAKE. DENIES PAIN AT THIS TIME. STATES NAUSEA CURRENTLY SUBSIDED, BUT "COMES AND GOES", SCHEDULED MEDICATION ADMINSITERED (PER EMAR). DENIES FURTHER NEEDS AT THIS TIME. CALL LIGHT WITHIN REACH.
--- NOTE | 2022-05-21 16:29 | NUR ---
THIS RN HAS SPENT MULTIPLE HOURS ATTEMPTING TO GET THROUGH TO PATIENT INSURANCE PROVIDER TO ASSIST WITH INPATIENT REHAB AUTH AND HAS BEEN UNSUCCESSFUL. ATTEMPTS HAVE ALSO BEEN MADE TO CONTACT [employer] WITH NO RESULT. ADMITTING AND UR STAFF INVOLVED AND WILL ASSIST ON TUESDAY. ITZEL CHAUDHRY UPDATED.
--- NOTE | 2022-05-21 16:50 | NUR ---
IN ROOM TO EXPLAIN TO PT MD WAS NOTIFIED AND ATIVAN WAS ORDERED. PT STATES "I DONT FEEL I NEED ANYTHING RIGHT NOW. I AM ANXIOUS, BUT NOT THAT ANXIOUS. I FEEL I NEED TO POOP". ENCOURAGED TO NOTIFY STAFF IF WANTING TO RECONSIDER ATIVAN.
--- NOTE | 2022-05-21 16:54 | NUR ---
THIS RN NOTIFIED PT IS HAVING ANXIETY. THIS RN IN ROOM TO ASSESS. PT HAS NEVER EXPERIENCED THIS AND IS WORRIED THE REGLAN ADMINISTERED IS THE CAUSE. THIS RN NOTIFIED MD AND TELEPHONE ORDER WAS GIVEN TO ORDER 1MG ATIVAN, IV ONCE.
--- NOTE | 2022-05-21 18:45 | NUR ---
PT RESTING IN BED, STATES ANXIETY HAS GONE DOWN. NAUSEA IS STILL PRESENT BUT CONTIUNES TO "COME AND GO". DENIES FURTHER NEEDS AT THIS TIME.
--- NOTE | 2022-05-21 19:15 | NUR ---
RECEIVED BEDSIDE REPORT FROM OFFGOING SHIFT
--- NOTE | 2022-05-21 21:35 | NUR ---
IN TO ANSWER CALL LIGHT. PT REQUESTING TO USE RESTROOM. IV PUMP UNPLUGGED FROM WALL. PT AMBULATES FROM BED TO RESTROOM WITH STEADY GAIT. PT NOTED TO HAVE EMESIS. SMALL LIQUID BM NOTED TO YENIFER PAD. NEW YENIFER PAD PLACED TO BED. NEW ATTENDS PROVIDED FOR PT. THIS RN INFORMED PRIMARY RN OF PTs EMESIS.
--- NOTE | 2022-05-21 21:50 | NUR ---
IN PT ROOM TO ASSIST WITH TOILETING. PT FOUND TO BE ALSO VOMITING, PT CLEANED UP AND HELPED TO BED, 300 mL EMESIS, NO COMPLAINT OF PAIN, PT DECLINES PRN NAUSEA MEDICATION. CALL LIGHT IN REACH.
--- NOTE | 2022-05-21 22:26 | NUR ---
IN PT ROOM TO ASSIST WITH PT VOMITING. PT EMESIS 600 mL. NO FURTHER COMPLAINT, CALL LIGHT IN REACH
--- NOTE | 2022-05-21 22:58 | NUR ---
IN PT ROOM FOR ROUNDING. PT RESTING ON BACK, WATCHING TELEVISION. STATES HE WILL CALL IF ANYTHING IS NEEDED, CALL LIGHT IN REACH
--- NOTE | 2022-05-22 00:12 | NUR ---
in pt room for rounding. pt watching television, talking about the first time he saw "back [place] the [place]". Pt has no complaint of pain or discomfort, call light in reach
--- NOTE | 2022-05-22 01:52 | NUR ---
IN PT ROOM FOR ROUNDING. PT RESTING ON BACK, EYES CLOSED, BREATHING EVEN AND UNLABORED, CALL LIGHT IN REACH, NO COMPLAINT OF PAIN OR DISCOMFORT.
--- NOTE | 2022-05-22 03:46 | NUR ---
IN PT ROOM FOR ROUNDING. PT RESTING ON BACK, EYES CLOSED, BREATHING EVEN AND UNLABORED. PT STIRRED WHEN ENTERING THE ROOM TO CHECK ON IV BAG. PT HAS NO COMPLAINT OF PAIN OR DISCOMFORT AT THIS TIME, CALL LIGHT IN REACH
--- NOTE | 2022-05-22 05:46 | NUR ---
in pt room for vs, rounding. pt resting on back, no complaint of nausea or vomiting at this time. pt has no complaint of pain or discomfort, labs drawn, call light in reach
--- NOTE | 2022-05-22 07:23 | NUR ---
RECEIEVED SHIFT REPORT. PT RESTING IN BED, AWAKE. PT REQUESTED TO USE RESTROOM. DENIES FURTHER NEEDS. CALL LIGHT WITHIN REACH
--- NOTE | 2022-05-22 08:20 | NUR ---
MORNING ASSESSMENT COMPLETE. PT DENIES PAIN AND NAUSEA AT THIS TIME. SCHEDULED MAG ADMINISTERING AT THIS TIME. HAD ONE EPISIODE OF OF LIQUID STOOL PRIOR TO THIS ASSESSMENT. ABD SOUNDS ACTIVE, NON TENDER. CALL LIGHT WITHIN REACH.
--- NOTE | 2022-05-22 09:44 | NUR ---
PT RESTING IN BED, AWAKE. DENIES FURTHER NEEDS AT THIS TIME. CALL LIGHT WITHIN REACH.
--- NOTE | 2022-05-22 10:28 | NUR ---
IN ROOM TO ADMINSTER SCHEDULED KCL (PER EMAR). PT REPORTS IN NAUSEOUS, PRN [place] MEDICATION OFFERED, PT STATES "IT WOULDNT HELP". PT BEGINS TO THROW UP. REPORTS ACID BURNING FEELING PRIOR TO THROWING UP. 100ML, LIGHT GREEN IN COLOR. DENIES FURTHER NEEDS AT THIS TIME, CALL LIGHT WITHIN REACH
== END 2022-05-22 13:10 | disposition home or self-care (01) | DRG 683 ==
LOC: ED 09:44 → MS 09:45
PROVIDERS: ADMIT Family Medicine; ATTEND Internal Medicine
DX: N17.9 Acute kidney failure, unspecified (principal); K86.3 Pseudocyst of pancreas; E87.6 Hypokalemia; Z20.822 Contact with and (suspected) exposure to COVID-19; E83.42 Hypomagnesemia; R11.15 Cyclical vomiting syndrome unrelated to migraine; E86.0 Dehydration; F41.1 Generalized anxiety disorder; M54.50 Low back pain, unspecified; G89.29 Other chronic pain; J45.909 Unspecified asthma, uncomplicated; Z91.018 Allergy to other foods; Z79.2 Long term (current) use of antibiotics; Z79.899 Other long term (current) drug therapy
CPT/HCPCS: 36415; 71045; 74176; 80048; 80053; 83690; 83735; 84100; 84484; 85025; 93005; 93010; 96361; 96374; 96375; 99285-25; J2405; J2550; J2765; J3475; J3480; J7030; J7060; U0003

== ENCOUNTER 2024-09-18 06:55 | Emergency (ER) | payer OTHER ==
[~2024-09-18] VITALS: Ht 180.3 cm; Wt 91.4 kg
[~2024-09-18 06:55] MED LIST changes: +CIPROFLOXACIN500 MG PO
[2024-09-18] MEDS ORDERED: SODIUM CHLORIDE 0.9% 1,000 ML IV ONE (07:15)
[2024-09-18] MEDS ORDERED: ondansetron HCL 4 MG/2 ML VIAL IV ONE (07:15)
[2024-09-18 07:21] LABS: BASOPHILS 0.4 % (0.2-1.2); EOSINOPHILS 0.9 % (0.8-7.0); HEMATOCRIT 43.6 % (40.1-51.0); HEMOGLOBIN 14.4 g/dL (13.7-17.5); LYMPHOCYTES 9.3 % (21.8-53.1); MCH 29.3 PG (25.7-32.2); MCV 88.6 fL (79.0-92.2); MONOCYTES 11.2 % (5.3-12.2); NEUTROPHILS 77.8 % (34.0-67.9); PLATELET COUNT 262 K/uL (163-337); RBC 4.92 M/uL (4.63-6.08)
[2024-09-18 07:37] LABS: ALBUMIN 2.9 g/dL (3.4-5.0); ALBUMIN/GLOBULIN RATIO 0.59 (1.1-2.4); ANION GAP 16.3 (7-21); BILIRUBIN, TOTAL 1.5 mg/dL (0.2-1.0); BUN/CREATININE RATIO 6.4 (6.0-28.6); CALCIUM 9.3 mg/dL (8.5-10.1); CREATININE, SERUM 1.25 mg/dL (0.70-1.30); POTASSIUM 3.3 mmol/L (3.5-5.1); PROTEIN, TOTAL 7.8 g/dL (6.4-8.2)
[2024-09-18 10:05] VITALS: BP 131/90
== END 2024-09-18 10:12 | disposition home or self-care (01) ==
LOC: ED 06:55
PROVIDERS: Emergency Medicine
DX: R10.12 Left upper quadrant pain (principal); J45.909 Unspecified asthma, uncomplicated; Z91.018 Allergy to other foods
CPT/HCPCS: 36415; 74177; 80053; 83690; 85025; 99284-25; J7030; Q9967